=== PATIENT | male | born 1935 | race African-American/Black ===

== ENCOUNTER 2019-11-17 12:43 | Inpatient (IN) | payer MEDICARE ==
[~2019-11-17] VITALS: Ht 180.3 cm; Wt 78.5 kg
[2019-11-17] MEDS ORDERED: SODIUM CHLORIDE 0.9% 1000ML BAG (SEPSIS BOLUS) IV ONE (13:15)
[2019-11-17 13:27] LABS: BG BASE EXCESS -3.7 mmol/L (-2.0-2.0); BG CARBOXYHEMOGLOBIN 0.6 % (0.5-1.5); BG DEOXYHEMOGLOBIN 5.6 % (0.0-5.0); BG FRACTION INSPIRED OXYGEN 28; BG HCO3 ACT 22.2 mmol/L (22.0-26.0); BG METHEMOGLOBIN 0.2 % (0.0-1.5); BG OXYGEN SATURATION 94.4 % (92.0-98.5); BG OXYHEMOGLOBIN 93.6 % (94.0-97.0); BG PCO2 43.4 mmHg (35.0-45.0); BG PH 7.326 (7.350-7.450); BG PO2 79.2 mmHg (75.0-100.0); BG SAMPLE SITE RIGHT BRACHIAL; BG TOTAL HEMOGLOBIN 11.1 g/dL (12.0-18.0); BG VENT MODE NASAL CANNULA
[2019-11-17] MEDS ORDERED: LEVOFLOXACIN 750MG PREMIX 150 ML IV ONE (13:30)
[2019-11-17 13:55] LABS: BASOPHILS % 0.7 % (0.0-2.0); EOSINOPHILS % 8.6 % (0.0-5.0); HEMATOCRIT. 31.3 % (42.0-52.0); HEMOGLOBIN. 10.2 g/dL (14.0-18.0); LYMPHOCYTES % 22.7 % (20.0-50.0); MEAN CORPUSCULAR HEMOGLOBIN 35.1 pg (28.0-32.0); MEAN CORPUSCULAR VOLUME 108.2 fL (80.0-94.0); MEAN PLATELET VOLUME 7.6 fl (7.4-10.4); PLATELET 243 x1000/uL (130-400); RED BLOOD CELL COUNT 2.89 mill/uL (4.7-6.1); RED CELL DISTRIBUTION WIDTH 20.5 % (11.6-14.6)
[2019-11-17 14:03] LABS: INR 1.2
[2019-11-17 14:04] LABS: CHLORIDE 111 mEq/L (98-107)
[2019-11-17 17:33] LABS: CLARITY URINE TURBID (CLEAR); COLOR URINE YELLOW (YELLOW); KETONES URINE NEGATIVE (NEGATIVE); LEUKOCYTE ESTERASE URINE 3+ (NEGATIVE); NITRITE URINE POSITIVE (NEGATIVE); OCCULT BLOOD URINE TRACE (NEGATIVE); PROTEIN URINE TRACE (NEGATIVE); SPECIFIC GRAVITY URINE 1.017 (1.005-1.030); UROBILINOGEN URINE 0.2 E.U./dL (0.2-1.0)
[2019-11-17 22:00] VITALS: BP 124/63
[2019-11-17] MEDS ORDERED: HYDR-4001 PO (22:09)
[2019-11-17] MEDS ORDERED: METO-539 PO (22:09)
[2019-11-17] MEDS ORDERED: MIRT15TA6 PO (22:10)
[2019-11-17] MEDS ORDERED: HYDR-4009 PO (22:11)
[2019-11-17] MEDS ORDERED: ONDA4TAB5 PO (22:15)
[2019-11-17] MEDS ORDERED: GABA-531 PO (22:15)
[2019-11-17] MEDS ORDERED: TAMS-11 PO (22:15)
[2019-11-17] MEDS ORDERED: RIVA20TA PO (22:15)
[2019-11-17] MEDS ORDERED: ALPR0.5T PO (22:15)
[2019-11-17] MEDS ORDERED: MIRTAZAPINE 15MG TABLET PO PRN (22:45)
[2019-11-17] MEDS ORDERED: HYDROCODONE/ACETAMINOPHEN 5/325MG TABLET PO PRN (22:45)
[2019-11-17] MEDS ORDERED: ACETAMINOPHEN 325MG TABLET PO PRN (22:45)
[2019-11-17 23:12] VITALS: BP 124/63
[2019-11-18] VITALS: BP 113/62
[2019-11-18] MEDS: SODIUM CHLORIDE 0.45% 1,000 ML IV SCH ×2 (00:03→12:20)
[2019-11-18] MEDS: CEFTRIAXONE 1 G PREMIX 50 ML IV SCH (00:03)
[2019-11-18 04:00] VITALS: BP 123/66
[2019-11-18 06:43] LABS: BASOPHILS % 0.5 % (0.0-2.0); EOSINOPHILS % 10.2 % (0.0-5.0); HEMATOCRIT. 26.5 % (42.0-52.0); HEMOGLOBIN. 8.8 g/dL (14.0-18.0); LYMPHOCYTES % 25.3 % (20.0-50.0); MEAN CORPUSCULAR HEMOGLOBIN 35.6 pg (28.0-32.0); MEAN CORPUSCULAR VOLUME 106.7 fL (80.0-94.0); MEAN PLATELET VOLUME 7.1 fl (7.4-10.4); MONOCYTES % 11.1 % (2.0-8.0); NEUTROPHILS % 52.9 % (40.0-76.0); PLATELET 213 x1000/uL (130-400); RED BLOOD CELL COUNT 2.48 mill/uL (4.7-6.1)
[2019-11-18 08:00] VITALS: BP 129/66
[2019-11-18] MEDS: TAMSULOSIN HCL 0.4MG SR CAPSULE PO SCH (09:06)
[2019-11-18] MEDS: PANTOPRAZOLE 40MG DR TABLET PO SCH (09:06)
[2019-11-18] MEDS: RIVAROXABAN 20 MG TABLET PO SCH (09:07)
[2019-11-18 11:57] LABS: BG BASE EXCESS -0.9 mmol/L (-2.0-2.0); BG CARBOXYHEMOGLOBIN 0.3 % (0.5-1.5); BG DEOXYHEMOGLOBIN 8.1 % (0.0-5.0); BG FRACTION INSPIRED OXYGEN 21; BG HCO3 ACT 24.1 mmol/L (22.0-26.0); BG METHEMOGLOBIN 0.3 % (0.0-1.5); BG OXYGEN SATURATION 91.9 % (92.0-98.5); BG OXYHEMOGLOBIN 91.3 % (94.0-97.0); BG PH 7.387 (7.350-7.450); BG PO2 63.7 mmHg (75.0-100.0); BG SAMPLE SITE RIGHT RADIAL; BG TOTAL HEMOGLOBIN 9.4 g/dL (12.0-18.0); BG VENT MODE ROOM AIR
[2019-11-18 12:00] VITALS: BP 126/62
[2019-11-18] MEDS ORDERED: LACTULOSE 20G/30ML UDC PO PRN (16:15)
[2019-11-18] MEDS ORDERED: HYDRALAZINE 20MG/ML VIAL IV PRN (16:15)
[2019-11-18] MEDS ORDERED: IPRATROPIUM/ALBUTEROL 0.5-3(2.5)MG/3ML NEB HHN PRN (16:15)
[2019-11-18] MEDS ORDERED: DIPHENHYDRAMINE 50MG/ML VIAL IV PRN (16:15)
[2019-11-18] MEDS ORDERED: LORAZEPAM 2MG/ML CPJ IV PRN (16:15)
[2019-11-18 18:09] LABS: HEMATOCRIT 26.4 % (42.0-52.0); HEMOGLOBIN 8.6 g/dL (14.0-18.0)
[2019-11-18 18:18] LABS: INR 1.4; PROTHROMBIN TIME 14.5 sec (9.6-11.0)
[2019-11-18 20:00] VITALS: BP 117/68
[2019-11-18] MEDS ORDERED: GABAPENTIN 300MG CAPSULE PO SCH (21:00)
[2019-11-19] VITALS: BP_SYST 121; BP_SYST 122; BP_DIAS 68; BP_DIAS 70
[2019-11-19] MEDS: CEFTRIAXONE 1 G PREMIX 50 ML IV SCH (01:34)
[2019-11-19] MEDS: SODIUM CHLORIDE 0.45% 1,000 ML IV SCH (01:35)
[2019-11-19 04:00] VITALS: BP 133/78
[2019-11-19 07:43] LABS: BASOPHILS % 0.9 % (0.0-2.0); EOSINOPHILS % 11.7 % (0.0-5.0); HEMATOCRIT. 27.4 % (42.0-52.0); HEMOGLOBIN. 9.1 g/dL (14.0-18.0); LYMPHOCYTES % 23.6 % (20.0-50.0); MEAN CORPUSCULAR HEMOGLOBIN 35.2 pg (28.0-32.0); MEAN CORPUSCULAR VOLUME 106.3 fL (80.0-94.0); MEAN PLATELET VOLUME 7.2 fl (7.4-10.4); MONOCYTES % 10.4 % (2.0-8.0); NEUTROPHILS % 53.4 % (40.0-76.0); PLATELET 241 x1000/uL (130-400); RED BLOOD CELL COUNT 2.58 mill/uL (4.7-6.1)
[2019-11-19 07:47] LABS: CHLORIDE 113 mEq/L (98-107)
[2019-11-19 08:00] VITALS: BP 134/71
[2019-11-19] MEDS: RIVAROXABAN 20 MG TABLET PO SCH (08:45)
[2019-11-19] MEDS: PANTOPRAZOLE 40MG DR TABLET PO SCH (08:45)
[2019-11-19] MEDS: TAMSULOSIN HCL 0.4MG SR CAPSULE PO SCH (08:45)
[2019-11-19] MEDS ORDERED: NITR-87 MT (09:29)
[2019-11-19 10:16] VITALS: BP 134/71
== END 2019-11-19 10:54 | disposition home or self-care (01) | DRG 871 ==
LOC: ER 12:43 → EDBEDREQSVC 18:17 → EDBEDREQ 18:17 → EDBEDREQTM 18:17 → EDBEDREQ 19:36 → ENRESERV 20:32 → 7WST 21:37
PROVIDERS: ADMIT Internal Medicine; ATTEND Internal Medicine
DX: A41.9 Sepsis, unspecified organism (principal); G93.41 Metabolic encephalopathy; J18.9 Pneumonia, unspecified organism; N39.0 Urinary tract infection, site not specified; C34.90 Malignant neoplasm of unspecified part of unspecified bronchus or lung; N17.9 Acute kidney failure, unspecified; E86.0 Dehydration; R65.20 Severe sepsis without septic shock; I71.2 Thoracic aortic aneurysm, without rupture; I12.9 Hypertensive chronic kidney disease with stage 1 through stage 4 chronic kidney disease, or unspecified chronic kidney disease; N18.9 Chronic kidney disease, unspecified; B96.89 Other specified bacterial agents as the cause of diseases classified elsewhere; E87.5 Hyperkalemia; D64.9 Anemia, unspecified; Z92.21 Personal history of antineoplastic chemotherapy; Z87.442 Personal history of urinary calculi; Z87.891 Personal history of nicotine dependence
CPT/HCPCS: 36415; 36600; 71045; 80048; 80053; 80061; 81003; 82375; 82805; 83605; 83880; 84145; 84153; 84484; 85014; 85018; 85025; 86850; 86900; 87077; 87186; 87804; 93005; 93306; 93970; 96365; 99291; J0696; J1956; J7030; G0103